=== PATIENT | male | born 1985 | race Caucasian/White ===

== ENCOUNTER 2024-07-10 11:21 | Emergency (ER) | payer OTHER ==
[~2024-07-10] VITALS: Ht 182.9 cm; Wt 90.7 kg
[2024-07-10] MEDS ORDERED: Ketorolac Tromethamine 30 MG/ML VIAL IM ONE (11:40)
[2024-07-10] MEDS ORDERED: ZANAFLEX4 MG PO (13:08)
[2024-07-10] MEDS ORDERED: NAPROSYN500 MG PO (13:08)
== END 2024-07-10 13:16 | disposition home or self-care (01) ==
LOC: ED 11:21
DX: S83.91XA Sprain of unspecified site of right knee, initial encounter (principal); Z90.5 Acquired absence of kidney; W18.39XA Other fall on same level, initial encounter; Y93.72 Activity, wrestling; Y92.89 Other specified places as the place of occurrence of the external cause; Y99.8 Other external cause status

== ENCOUNTER 2024-10-05 12:14 | Emergency (ER) | payer OTHER ==
[~2024-10-05] VITALS: Ht 182.8 cm; Wt 88.5 kg
[~2024-10-05 12:14] MED LIST: NAPROSYN500 MG PO; ZANAFLEX4 MG PO
[2024-10-05] MEDS ORDERED: SODIUM CHLORIDE 0.9% 1,000 ML IV ONE (12:45)
[2024-10-05 12:59] LABS: BASO # 0.1 10*3/uL (0.0-0.1); BASO % 0.5 % (0.0-1.0); EOS # 0.3 10*3/uL (0.0-0.4); EOS % 2.5 % (1.0-4.0); HEMATOCRIT 45.7 % (42.0-52.0); MEAN CELL VOLUME 87.7 fl (80.0-94.0); MEAN PLATELET VOLUME 8.2 fl (9.6-12.3); MONO # 0.9 10*3/uL (0.1-1.0); MONO % 8.9 % (3.0-9.0); NEUT # 8.1 10*3/uL (2.3-7.9); PLATELET COUNT AUTOMATED 369 10*3/uL (130-400); RED BLOOD COUNT 5.21 10*6/uL (4.50-5.90); RED CELL DISTRI WIDTH 11.9 % (0-14.5); WHITE BLOOD COUNT 10.3 10*3/uL (4.8-10.8)
[2024-10-05 13:19] LABS: ALKALINE PHOSPHATASE 100 U/L (46-116); BUN 8 mg/dl (9-23); CHLORIDE 100 mmol/L (98-107); POTASSIUM 3.9 mmol/L (3.4-5.1); SGPT/ALT 72 U/L (5-49); TOTAL PROTEIN 7.7 gm/dL (6.0-8.0)
[2024-10-05] MEDS ORDERED: VIBRAMYCIN100 MG PO (13:42)
== END 2024-10-05 14:05 | disposition home or self-care (01) ==
LOC: ED 12:14
PROVIDERS: Emergency Medicine
DX: M79.10 Myalgia, unspecified site (principal); H53.8 Other visual disturbances; Z85.528 Personal history of other malignant neoplasm of kidney